=== PATIENT | female | born 1965 | race Caucasian/White ===

== ENCOUNTER 2017-10-08 07:12 | Emergency (ER) | payer OTHER ==
[2017-10-08 07:34] VITALS: BP 145/82
--- NOTE | 2017-10-08 08:04 | UC ---
Shoulder Pain HPI - HPI Summary HPI Summary: 52 yo female with progressively worsening right shoulder pain hurts to abduct past two PMs she has had a hard time sleeping she is right handed mild relief with MOTRIN - History of Current Complaint Chief Complaint: UCUpperExtremity Stated Complaint: ARM PAIN Time Seen by Provider: 10/08/17 07:41 Hx Obtained From: Patient Onset/Duration: Gradual Onset, Lasting Days, Worse Since - marked worsening past 2 nights Timing: Constant Severity Initially: Mild Severity Currently: Moderate Pain Intensity: 6 - declines analgesic here Pain Scale Used: 0-10 Numeric Character: Aching, Throbbing, Spasmodic, Stiffness Aggravating Factor(s): Movement, Lifting, Internal Rotation, External Rotation, Abduction Associated Signs And Symptoms: Positive: Negative Related History: Dominant Hand Right - Allergies/Home Medications Allergies/Adverse Reactions: Allergies Allergy/AdvReac Type Severity Reaction Status Date / Time codeine Allergy Hives Verified 10/08/17 07:45 erythromycin base Allergy Rash And Verified 10/08/17 07:45 Itching Penicillins Allergy Hives Verified 10/08/17 07:45 Sulfa (Sulfonamide Allergy Hives Verified 10/08/17 07:45 Antibiotics) CT DYE Allergy Intermediate Hives Uncoded 10/08/17 07:24 Home Medications: Home Medications Cyanocobalamin TAB* [Vitamin B12 TAB*] 500 mcg PO DAILY 10/08/17 [History Confirmed 10/08/17] PMH/Surg Hx/FS Hx/Imm Hx Previously Healthy: Yes Cardiovascular History: Hypertension - Surgical History Surgical History: Yes Surgery Procedure, Year, and Place: partial HYSTERECTOMY, cervix[place] [facility] [place]ies[place] LEFT carpal tunnel, [place], [facility] [place]UBAL [place]IGATION, 1994, [place]. 2003, LEFT HEEL SPUR, [facility] [place]. VERICOSE VEIN BILAT, 2011. carpal tunnel right 2013. BREAST BX - Family History Known Family History: Positive: Hypertension - Social History Alcohol Use: None Substance Use Type: None Smoking Status (MU): Light Every Day Tobacco Smoker Type: Cigarettes Amount Used/How Often: 3/4PPD Length of Time of Smoking/Using Tobacco: 30 years Have You Smoked in the Last Year: Yes Review of Systems Constitutional: Negative Skin: Negative Eyes: Negative ENT: Negative Respiratory: Negative Cardiovascular: Negative Gastrointestinal: Negative Genitourinary: Negative Motor: Negative Neurovascular: Negative Musculoskeletal: Arthralgia Neurological: Negative Psychological: Negative Is Patient Immunocompromised?: No All Other Systems Reviewed And Are Negative: Yes Physical Exam Triage Information Reviewed: Yes Appearance: Well-Appearing, No Pain Distress, Well-Nourished Vital Signs: Initial Vital Signs Temp 97.6 F 10/08/17 07:26 Pulse 73 10/08/17 07:26 Resp 16 10/08/17 07:26 BP 145/82 10/08/17 07:26 Pulse Ox 0 10/08/17 07:26 Vital Signs Reviewed: Yes Eyes: Positive: Conjunctiva Clear ENT: Positive: Hearing grossly normal. Negative: Nasal congestion, Nasal drainage, Trismus, Muffled voice, Hoarse voice Neck: Positive: Supple, Nontender, No Lymphadenopathy Respiratory: Positive: Lungs clear, Normal breath sounds, No respiratory distress Cardiovascular: Positive: RRR, No Murmur Musculoskeletal: Positive: ROM Limited @ - right shoulder, Other: - tender ant humerus/unable to abduct> 10 degrees, internal rotation less painful than external rotation. Neurological: Positive: Alert Psychological Exam: Normal Skin Exam: Normal Diagnostics - Radiology No standard instances Xray Interpretation: Positive (See Comments) - SOFT TISSUE CALCIFICATIONS SUGGESTIVE OF A CALCIFIC TENDINOPATHY. Radiology Interpretation Completed By: Radiologist Shoulder Course/Dx - Differential Dx/Diagnosis Provider Diagnoses: right shoulder calcific tendonitis Discharge - Sign-Out/Discharge Documenting (check all that apply): Discharge/Admit/Transfer - Discharge Plan Condition: Stable Disposition: HOME Prescriptions: Ibuprofen TAB* [Motrin TAB*] 600 mg PO Q6H PRN #40 tab PRN Reason: Pain Patient Education Materials: Calcific Tendinitis (ED) Referrals: Cinthya Bergman MD [Medical Doctor] - Ayesha Dumont MD [Primary Care Provider] - If Needed Additional Instructions: sling for comfort frequent ROM exercises as discussed heat massage see you provider or orthopedist in follow up you may need a cortisone shot /change in management if not improving - Billing Disposition and Condition Condition: STABLE Disposition: Home
--- NOTE | 2017-10-08 08:22 | RAD ---
HISTORY: pain x 1 week/unable to abduct COMPARISONS: None VIEWS: 4, Frontal internal rotation, external rotation, outlet, and axillary views of the right shoulder FINDINGS: BONE DENSITY: Normal. BONES: There is no displaced fracture. JOINTS: There is mild osteoarthritis of the right AC joint. ALIGNMENT: There is no dislocation. SOFT TISSUES: There is soft tissue calcification along the radial tuberosity of the right humerus. OTHER FINDINGS: None. IMPRESSION: 1. MILD OSTEOARTHRITIS. 2. SOFT TISSUE CALCIFICATIONS SUGGESTIVE OF A CALCIFIC TENDINOPATHY. 3. NO ACUTE OSSEOUS INJURY. IF SYMPTOMS PERSIST, RECOMMEND REPEAT IMAGING.
== END 2017-10-08 08:40 | disposition home or self-care (01) ==
LOC: UCEAST 07:12
DX: M75.31 Calcific tendinitis of right shoulder (principal); I10 Essential (primary) hypertension; Z88.5 Allergy status to narcotic agent; Z88.2 Allergy status to sulfonamides; Z88.1 Allergy status to other antibiotic agents; Z91.041 Radiographic dye allergy status; F17.210 Nicotine dependence, cigarettes, uncomplicated; Z82.49 Family history of ischemic heart disease and other diseases of the circulatory system
CPT/HCPCS: 99213; G0463